=== PATIENT | male | born 1970 | race Caucasian/White ===

== ENCOUNTER 2017-08-31 17:56 | Emergency (ER) | payer OTHER ==
[~2017-08-31] VITALS: Ht 180.3 cm; Wt 93.8 kg
[~2017-08-31 17:56] MED LIST: IBUP-232 PO; NORC5TAB PO
[2017-08-31 18:04] VITALS: BP 207/127; PULSE 123; RESP 18; TEMP 99.1; O2SAT 99
[2017-08-31] MEDS ORDERED: AMOX500C PO (18:10)
[2017-08-31 18:42] VITALS: BP 156/107; PULSE 88; RESP 18; O2SAT 99
--- NOTE | 2017-08-31 18:58 | PD ---
HPI Chief Complaint: Neuro Symptoms/ Deficits Time Seen by Provider: 18:16 Travel History International Travel<30 days: No Contact w/Intl Traveler<30days: No Traveled to known affect area: No History of Present Illness HPI This patient complains of some drooping of the right side of his face. Started around 11 AM today. Duration 6 hours. Severity is moderate. He is recently had a lot of swelling on the right ear and right side of his face due to a infection there. The swelling has improved lately. He has no left-sided facial symptoms. It is hard to close his right eye all the way in his right face is drooping. He has no sensory loss. No pain. He has no speech slurring or confusion. No arm or leg symptoms. No motor weakness or paresthesia or sensory loss of extremities. No history of TIA or CVA. He is not having a headache. Initial blood pressure was significantly elevated but at this point is 150s systolic. PFSH Past Medical History Medical History: Denies Significant Hx Diminished Hearing: No Influenza Vaccination: No ?: Not Past Surgical History Other Surgery: Yes (SKIN GRAFTS) Social History Alcohol Use: Yes Tobacco Use: Yes (CHEW) Substance Use: No Allergies-Medications (Allergen,Severity, Reaction): Coded Allergies: No Known Allergies (Unverified Adverse Reaction, Unknown, 08/31/17) Reported Meds & Prescriptions Reported Meds & Active Scripts Active Reported Amoxicillin 500 Mg Cap 500 Mg PO BID Review of Systems General / Constitutional: No: Fever Eyes: No: Visual changes HENT: No: Headaches Cardiovascular: No: Chest Pain or Discomfort Respiratory: No: Shortness of Breath Gastrointestinal: No: Abdominal Pain Genitourinary: No: Dysuria Musculoskeletal: No: Pain Skin: No Rash Neurologic: Positive: Weakness Psychiatric: No: Depression Endocrine: No: Polydipsia Hematologic/Lymphatic: No: Easy Bruising Physical Exam Narrative GENERAL: Well-nourished, well-developed patient in no apparent distress. SKIN: Focused skin assessment reveals no rash and nodules. Skin is Warm and dry. HEAD: Atraumatic. Normocephalic. EYES: Pupils equal and round. No scleral icterus. No injection or drainage. ENT: No nasal bleeding or discharge. Mucous membranes pink and moist. NECK: Trachea midline. No JVD. CARDIOVASCULAR: Regular rate and rhythm. No murmur appreciated. RESPIRATORY: No accessory muscle use. Clear to auscultation. Breath sounds equal bilaterally. GASTROINTESTINAL: Abdomen soft, non-tender, nondistended. Hepatic and splenic margins not palpable. MUSCULOSKELETAL: No obvious deformities. No clubbing. No cyanosis. No edema. NEUROLOGICAL: Awake and alert. Motor exam of the extremities grossly within normal limits. Normal speech. Mental status normal. Facial examination reveals right-sided facial muscle weakness of the forehead and periorbital musculature and has right facial droop. There is asymmetric forehead wrinkling with weakness on the right side. PSYCHIATRIC: Appropriate mood and affect; insight and judgment normal. Data Data Last Documented VS Vital Signs Date Time Temp Pulse Resp B/P (MAP) Pulse Ox O2 Delivery O2 Flow Rate FiO2 08/31/17 18:42 88 18 156/107 (123) 99 Room Air 08/31/17 18:04 99.1 [facility] Medical Decision Making Medical Screen Exam Complete: Yes Emergency Medical Condition: Yes Medical Record Reviewed: Yes Differential Diagnosis Epps's palsy, CVA, TIA Narrative Course I have reviewed the patient's electronic medical record. 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 He has right-sided facial muscle weakness with no other symptoms. He has had right-sided ear and facial swelling recently which likely is contributory. I am going to prescribe him some acyclovir and some prednisone. He will call his family physician Saturday for follow-up. We discussed signs and symptoms of stroke such as speech slurring and motor weakness and numbness etc. If he develops any of those symptoms he will return promptly. There is no indication for brain imaging in the face of clinical Epps's palsy like this. Diagnosis Primary Impression: Epps's palsy Additional Instructions: Follow-up with primary care and/or neurology Med/Other Pt SpecificInfo: Prescription(s) given Disposition: DISCHARGE HOME Condition: Stable Scott Mendez MD Aug 31, 2017 18:58
[2017-08-31] MEDS ORDERED: ACYC800T PO (18:59)
[2017-08-31] MEDS ORDERED: PRED20 PO (18:59)
[2017-08-31 19:24] VITALS: BP 155/104
[2017-08-31 19:29] VITALS: BP 154/89
--- NOTE | 2017-09-01 13:40 | EKG ---
Date Performed: 08/31/2017 Time Performed: 18:15:06 PTAGE: 47 years EKG: SINUS TACHYCARDIA ABNORMAL RHYTHM ECG NO PREVIOUS TRACING DOCTOR: Wally Stokes Interpretating Date/Time 09/01/2017 13:40:00
== END 2017-08-31 19:40 | disposition home or self-care (01) ==
LOC: PHED 17:56
DX: G51.0 Bell's palsy (principal); R53.1 Weakness; R00.0 Tachycardia, unspecified; R94.31 Abnormal electrocardiogram [ECG] [EKG]; F17.220 Nicotine dependence, chewing tobacco, uncomplicated
CPT/HCPCS: 93005; 99283